=== PATIENT | female | born 1990 | race African-American/Black ===

== ENCOUNTER 2017-12-15 09:46 | Inpatient (IN) | payer OTHER ==
[~2017-12-15] VITALS: Ht 160 cm; Wt 86.2 kg
--- NOTE | 2017-12-15 10:18 | History & Physical ---
General Information and HPI MD Statement: I have seen and personally examined APRYL GRSOS and documented this H&P. The patient is a 27 year old female at unknown weeks and days gestation who presented with a chief complaint of labor pains.. Source of Information: patient Exam Limitations: confusion History of Present Illness: Pt is LMP unknown has been having contractions for a few hours she called the ambulance and is now on L&D. 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 EENTM: Denies: blurred vision, double vision, visual changes. Cardiovascular: Reports: no symptoms. Exam & Diagnostic Data Last 24 Hrs of Vital Signs/I&O unk Obstetric Exam Wgt Gained During : unk Pelvimetry: seems adequate Dilation (cm): 9 Effacement (%): 99 Station: 0 Membranes: intact Fluid: unknown Fundal Height (cm): 26 Multiple Gestation? No Contractions: Q 3-4 min Infant #1 - FHR Baseline: 130 Category: 1 Estimated Weight: 2000g Presentation: vtx Patient for Induction? No Physical Exam General Appearance Alert, Oriented X3, Severe Distress Skin No Rashes, No Breakdown HEENT Atraumatic Neck Supple Cardiovascular Regular Rate Lungs Clear to Auscultation Abdomen fundus 27-30 cm Neurological Normal Speech Extremities 3+ edema pf LE Labs Blood Type & Rh: B POS Antibody Screen: neg Hct/Hgb & Platelets #1: 10.5/31.3/280 Hct/Hgb & Platelets #2: not done Rubella: pending VDRL #1: pending VDRL #2: pending HbsAg: pending HIV #1: negative HIV #2 not done 1 Hr PG: none Group B Strep: unk Initial Ultrasound: no Anatomy Ultrasound: no Ultrasound for EFW: no Genetic Testing: none Last 24 Hrs of Labs/Hal: Laboratory Tests 12/15/17 0950: Glucose Pending, Hemoglobin A1c Pending, RPR Titer/FTA Pending, Rubella Screen Pending 12/15/17 0950: Creatinine Pending, Uric Acid Pending, AST Pending, ALT Pending, Lactate Dehydrogenase Pending, CBC w Diff Pending, WBC Pending, RBC Pending, Hgb Pending , Hct Pending, MCV Pending, MCH Pending, MCHC Pending, RDW Pending, Plt Count Pending, MPV Pending, Hep Bs Antigen Pending, HIV 1&2 Ab Western Blot Pending Assessment/Plan Assessment/Plan: active labor fully dilated with urge to push perepheral edema PIH labs negative no PNc plan labs ordered Social work consult tox screen PIH eval peds at delivery As Ranked By This Provider Problem List: 1. Core Measures Venous Thromboembolism VTE Risk Factors / No Mechanical VTE Prophylaxis d/t LowRisk-No Interven Req'd No VTE Pharm Prophylaxis d/t LowRisk-No Interven Req'd Attending MD Review Statement Attending Statement Attending MD Statement: examined this patient, discussed w/nursing
--- NOTE | 2017-12-15 10:20 | Labor & Delivery Summary ---
Delivery Summary Vaginal Delivery: Vaginal: vertex Episiotomy/Lacerations: Episiotomy/Lacerations: none Type: intact Repair: none Anesthesia: none Placenta: Placenta: spontanteous, normal, 3 vessel Anesthesia: none Cord PH Value: 7.44 Baby's Weight: 2240 Apgars - 1 Min: 8 Apgars - 5 Min: 9 Additional Comments: Pt arrived in labor with no PNC fully dilated vertex IV started labs drawn pt delivered over intact perineum placenta followed intact good hemostasis with IV pitocin. Peds in attendance.
[2017-12-15 10:48] VITALS: BP 116/71
[2017-12-15 11:04] LABS: ABSOLUTE BASOPHIL COUNT 0 /CUMM (0.0-0.2); ABSOLUTE EOSINOPHIL COUNT 0.1 /CUMM (0.0-0.7); ABSOLUTE GRANULOCYTE CT 10.8 /CUMM (1.4-6.5); ABSOLUTE MONOCYTE COUNT 0.8 /CUMM (0.10-0.60); BASOPHIL % 0.3 % (0.0-2.0); EOSINOPHIL % 0.7 % (0-5); GRANULOCYTE % 72.9 % (42.2-75.2); HEMATOCRIT 31.3 % (37-47); MEAN CORPUSCULAR HGB 29.9 PG (27.0-31.0); MEAN CORPUSCULAR HGB CONC 33.6 G/DL (33.0-37.0); MEAN CORPUSCULAR VOLUME 88.9 FL (81.0-99.0); MEAN PLATELET VOLUME 10.5 FL (7.4-10.4); PLATELET COUNT 280 /CUMM (130-400); RBC DISTRIBUTION WIDTH 13.3 % (11.5-14.5); RED BLOOD CELL CT 3.52 /CUMM (4.20-5.40); WHITE BLOOD CELL COUNT 14.8 /CUMM (4.8-10.8)
[2017-12-16 09:40] LABS: ABSOLUTE BASOPHIL COUNT 0 /CUMM (0.0-0.2); ABSOLUTE EOSINOPHIL COUNT 0.1 /CUMM (0.0-0.7); ABSOLUTE GRANULOCYTE CT 13.6 /CUMM (1.4-6.5); ABSOLUTE LYMPH COUNT 1.8 /CUMM (1.2-3.4); ABSOLUTE MONOCYTE COUNT 0.5 /CUMM (0.10-0.60); BASOPHIL % 0.2 % (0.0-2.0); EOSINOPHIL % 0.6 % (0-5); HEMATOCRIT 28.8 % (37-47); MEAN CORPUSCULAR HGB 30.4 PG (27.0-31.0); MEAN CORPUSCULAR HGB CONC 34.1 G/DL (33.0-37.0); MEAN CORPUSCULAR VOLUME 89.1 FL (81.0-99.0); MEAN PLATELET VOLUME 10.5 FL (7.4-10.4); RBC DISTRIBUTION WIDTH 13.4 % (11.5-14.5); RED BLOOD CELL CT 3.23 /CUMM (4.20-5.40)
--- NOTE | 2017-12-16 10:02 | PN- OBGYN ---
Surgical Brief Attending Note Brief Attending Note: pt feels well. no pain. amb / void / sravanthi po. desires d/c home today as baby in nicu at [facility]. intends to bf. afeb, v/ss nad abd soft nt ff guy min lochia ext nt +1 b/l le ed hct 31 hiv neg, hepbsag neg vdrl pending, rub pending mbt b pos utox +cannibinoid a/p ppd 1 s/p precip of , unsure gestational age, possibly 32 wks, no care, baby transferred to [facility] - doing well -s/p sw consult - will follow -order tdap -d/c home - instructions reviewed -prefers to follow up at [facility] from [facility] in 2 wks and 6 wks
[2017-12-16 10:28] LABS: PLATELET COUNT 233 /CUMM (130-400)
== END 2017-12-16 13:18 | DRG 560 ==
LOC: GNO 09:46
PROVIDERS: Obstetrics & Gynecology
PROC: 10E0XZZ Delivery of Products of Conception, External Approach (ICD-10-PCS; principal; 2017-12-15)
DX: O60.14X0 Preterm labor third trimester with preterm delivery third trimester, not applicable or unspecified (principal); Z3A.32 32 weeks gestation of pregnancy; Z37.0 Single live birth; O99.324 Drug use complicating childbirth; F12.90 Cannabis use, unspecified, uncomplicated
CPT/HCPCS: GNOS; 36415; 80307; 81001; 87389; J7120